=== PATIENT | female | born 1990 | race Caucasian/White ===

== ENCOUNTER 2017-04-06 18:24 | Inpatient (IN) | payer OTHER ==
[~2017-04-06] VITALS: Ht 154.9 cm; Wt 66.7 kg
[2017-04-06 18:36] VITALS: BP_SYST 143
[2017-04-06 19:39] LABS: BILIRUBIN,URINE NEGATIVE (NEGATIVE); BLOOD, URINE 1+ (NEGATIVE); CLARITY/URINE CLEAR (CLEAR); GLUCOSE,URINE NEGATIVE (NEGATIVE); KETONES,URINE NEGATIVE (NEGATIVE); LEUKOCYTE ESTERASE ,URINE 2+ (NEGATIVE); NITRITE, URINE NEGATIVE (NEGATIVE); PH,URINE 6.5 (5.0-8.0); PROTEIN URINE NEGATIVE (NEGATIVE); UROBILINOGEN,URINE 0.2 (0.2-1.0)
[2017-04-06 19:55] LABS: COLOR,URINE STRAW (YELLOW)
[2017-04-06 19:58] LABS: BACTERIA,URINE FEW /HPF (None Seen); WBC,URINE 20-50 /HPF (0-3)
[2017-04-06 19:59] LABS: MUCUS,URINE None Seen /LPF (None Seen)
[2017-04-06 20:00] LABS: BARBITURATE, URINE NEGATIVE (NEG <=200); METHAMPHETAMINES SCREEN,URINE NEGATIVE (NEG <=500); URINE AMPHETAMINE NEGATIVE (NEG <=500); URINE METHADONE NEGATIVE (NEG <=200)
[2017-04-06] MEDS ORDERED: KETOROLAC TROMETHAMINE 30 MG VIAL IVP ONE (20:00)
[2017-04-06] MEDS ORDERED: FOLIC ACID 1 MG, THIAMINE HCL 100 MG, MAGNESIUM SULFATE 1 GM, MVI 10 ML in NACL 0.9% 1,... IV ONE (20:00)
[2017-04-06] MEDS ORDERED: LORazepam 2 MG/ML VIAL (FOR ER USE) IVP ONE (20:00)
[2017-04-06 20:01] LABS: BENZODIAZEPINE, URINE POSITIVE (NEG <=150); CANNABINOID, URINE NEGATIVE (NEG <=50); COCAINE, URINE NEGATIVE (NEG <=150); OPIATE, URINE NEGATIVE (NEG <=100); PHENCYCLIDINE SCREEN,URINE NEGATIVE (NEG <=25); UR TRICYCLIC ANTIDEPRESSANTS NEGATIVE (NEG <=300); URINE OXYCODONE SCREEN NEGATIVE (NEG <=100); URINE PROPOXYPHENE SCREEN NEGATIVE (NEG <=300)
[2017-04-06] MEDS ORDERED: THIAMINE HCL 100 MG/ML VIAL ONE (20:27)
[2017-04-06] MEDS ORDERED: MVI 10 ML VIAL IV ONE (20:27)
[2017-04-06] MEDS ORDERED: FOLIC ACID 5 MG/ML VIAL IV ONE ×2 (20:27→21:45)
[2017-04-06] MEDS ORDERED: MAGNESIUM SULFATE 1 GM/2 ML VIAL ONE (20:27)
[2017-04-06 20:31] LABS: BASOPHILS % (AUTO) 0.6 % (0.0-2.0); EOSINOPHILS % (AUTO) 0.4 % (0.0-4.0); HEMATOCRIT 39.8 % (36-48); HEMOGLOBIN 13.8 g/dL (12.0-16.0); LYMPHOCYTES # (AUTO) 2.1 K/uL (1.0-5.5); LYMPHOCYTES % (AUTO) 25.8 % (20.5-51.5); MEAN CORPUSCULAR HEMOGLOBIN 32 pg (27-31); MEAN CORPUSCULAR HGB CONC 35 % (32-36); MEAN CORPUSCULAR VOLUME 92 fL (79.0-98.0); MONOCYTES # (AUTO) 0.6 K/uL (0.0-1.0); MONOCYTES % (AUTO) 6.9 % (1.7-9.3); NEUTROPHILS # (AUTO) 5.5 K/uL (1.8-7.7); NEUTROPHILS % (AUTO) 66.3 % (40.0-70.0); PLATELET COUNT (AUTO) 372 K/uL (130-430); RED BLOOD CELL COUNT(AUTO) 4.31 MIL/uL (4.2-6.2); WHITE BLOOD COUNT (AUTO) 8.2 K/uL (4.8-10.8)
[2017-04-06 20:40] LABS: ANION GAP 15 (5-15); CALCIUM 8.7 mg/dL (8.4-11.0); CHLORIDE 101 mmol/L (98-107); CREATININE 0.78 mg/dL (0.55-1.30); GLUCOSE 102 mg/dL (70-99); POTASSIUM 3.7 mmol/L (3.5-5.1); SODIUM SERUM 138 mmol/L (136-145); UREA NITROGEN, BLOOD 11 mg/dL (8-21)
[2017-04-06 20:43] LABS: GFR AFRICAN AMERICAN 117 mL/min (>90)
[2017-04-06 20:47] LABS: ALANINE AMINOTRANSFERASE 40 U/L (12-78); ALBUMIN 4.4 g/dL (3.4-4.8); ASPARTATE AMINOTRANSFERASE 86 U/L (10-37); TOTAL BILIRUBIN 0.4 mg/dL (0.0-1.0); TOTAL PROTEIN, SERUM 8.1 g/dL (6.4-8.3)
[2017-04-06 20:48] LABS: ACETAMINOPHEN < 1 ug/mL (1-30)
[2017-04-06 20:58] LABS: ALCOHOL, BLOOD 210 mg/dL (<10); SALICYLATE 1 mg/dL (3-30)
[2017-04-06] MEDS ORDERED: ACETAMINOPHEN 325 MG TABLET PO PRN (21:30)
[2017-04-06] MEDS ORDERED: LORazepam 2 MG/ML VIAL IM PRN (21:30)
[2017-04-06 22:22] VITALS: BP_SYST 131
[2017-04-06] MEDS: cefTRIAXone 1 GM in D5W 50 ML IV SCH (23:00)
[2017-04-06] MEDS ORDERED: cefTRIAXone 1 GM IVPB PREMIX 50 ML IV ONE (23:11)
[2017-04-06] MEDS: NACL 0.9% 1,000 ML IV SCH (23:14)
[2017-04-06 23:20] VITALS: BP_SYST 131
[2017-04-06 23:29] VITALS: BP_SYST 131
[2017-04-07 03:56] VITALS: BP_SYST 121
[2017-04-07 07:13] LABS: BASOPHILS % (AUTO) 0.5 % (0.0-2.0); EOSINOPHILS # (AUTO) 0.1 K/uL (0.0-0.4); EOSINOPHILS % (AUTO) 1.7 % (0.0-4.0); HEMATOCRIT 33.9 % (36-48); HEMOGLOBIN 11.8 g/dL (12.0-16.0); LYMPHOCYTES # (AUTO) 1.2 K/uL (1.0-5.5); LYMPHOCYTES % (AUTO) 19.9 % (20.5-51.5); MEAN CORPUSCULAR HEMOGLOBIN 33 pg (27-31); MEAN CORPUSCULAR HGB CONC 35 % (32-36); MEAN CORPUSCULAR VOLUME 93 fL (79.0-98.0); MONOCYTES # (AUTO) 0.4 K/uL (0.0-1.0); MONOCYTES % (AUTO) 6.7 % (1.7-9.3); NEUTROPHILS # (AUTO) 4.1 K/uL (1.8-7.7); NEUTROPHILS % (AUTO) 71.2 % (40.0-70.0); PLATELET COUNT (AUTO) 259 K/uL (130-430); RED BLOOD CELL COUNT(AUTO) 3.63 MIL/uL (4.2-6.2); RED CELL DISTRIBUTION WIDTH 12.1 % (9.0-15.0)
[2017-04-07 07:18] LABS: ALBUMIN 3.5 g/dL (3.4-4.8); CALCIUM 7.4 mg/dL (8.4-11.0); CREATININE 0.62 mg/dL (0.55-1.30); POTASSIUM 3.7 mmol/L (3.5-5.1); TOTAL BILIRUBIN 0.5 mg/dL (0.0-1.0); TOTAL PROTEIN, SERUM 6.8 g/dL (6.4-8.3)
[2017-04-07 07:25] LABS: WHITE BLOOD COUNT (AUTO) 5.9 K/uL (4.8-10.8)
[2017-04-07] MEDS: buPROPion HCL 75 MG TABLET PO SCH ×2 (08:07→20:49)
[2017-04-07] MEDS: METOPROLOL TARTRATE 25 MG TABLET PO SCH ×2 (08:08→20:50)
[2017-04-07] MEDS: NACL 0.9% 1,000 ML IV SCH ×2 (08:08→17:17)
[2017-04-07] MEDS: ENOXAPARIN SODIUM 40 MG/0.4 ML SYRINGE SUBCUT SCH (08:09)
[2017-04-07 08:15] VITALS: BP_SYST 135
[2017-04-07] MEDS: THIAMINE HCL 100 MG in NS 50 ML IV SCH (08:18)
[2017-04-07] MEDS ORDERED: ONDANSETRON HCL 4 MG/2 ML VIAL IVP PRN (09:45)
[2017-04-07 11:47] VITALS: BP_SYST 121
[2017-04-07] MEDS: ONDANSETRON HCL 4 MG/2 ML VIAL IVP PRN ×2 (15:06→20:57)
[2017-04-07 15:49] VITALS: BP_SYST 144
[2017-04-07 20:34] VITALS: BP_SYST 130
[2017-04-07] MEDS: cefTRIAXone 1 GM in D5W 50 ML IV SCH (20:48)
[2017-04-08] VITALS: BP_SYST 118
[2017-04-08] MEDS: NACL 0.9% 1,000 ML IV SCH (02:57)
[2017-04-08 04:00] VITALS: BP_SYST 131
[2017-04-08 07:04] LABS: BASOPHILS % (AUTO) 0.3 % (0.0-2.0); EOSINOPHILS # (AUTO) 0.1 K/uL (0.0-0.4); EOSINOPHILS % (AUTO) 2.7 % (0.0-4.0); HEMATOCRIT 35.3 % (36-48); HEMOGLOBIN 12.3 g/dL (12.0-16.0); LYMPHOCYTES % (AUTO) 21.9 % (20.5-51.5); MEAN CORPUSCULAR HEMOGLOBIN 33 pg (27-31); MEAN CORPUSCULAR HGB CONC 35 % (32-36); MEAN CORPUSCULAR VOLUME 93 fL (79.0-98.0); MONOCYTES # (AUTO) 0.4 K/uL (0.0-1.0); NEUTROPHILS % (AUTO) 67.1 % (40.0-70.0); PLATELET COUNT (AUTO) 237 K/uL (130-430); RED BLOOD CELL COUNT(AUTO) 3.78 MIL/uL (4.2-6.2); RED CELL DISTRIBUTION WIDTH 11.7 % (9.0-15.0); WHITE BLOOD COUNT (AUTO) 4.5 K/uL (4.8-10.8)
[2017-04-08 07:23] LABS: ALBUMIN 3.5 g/dL (3.4-4.8); CALCIUM 7.5 mg/dL (8.4-11.0); CREATININE 0.71 mg/dL (0.55-1.30); POTASSIUM 3.5 mmol/L (3.5-5.1); TOTAL BILIRUBIN 0.6 mg/dL (0.0-1.0); TOTAL PROTEIN, SERUM 7.1 g/dL (6.4-8.3)
[2017-04-08 08:00] VITALS: BP_SYST 133
[2017-04-08] MEDS: ONDANSETRON HCL 4 MG/2 ML VIAL IVP PRN ×2 (08:21→21:16)
[2017-04-08] MEDS: buPROPion HCL 75 MG TABLET PO SCH ×2 (08:21→20:57)
[2017-04-08] MEDS: METOPROLOL TARTRATE 25 MG TABLET PO SCH ×2 (08:22→20:57)
[2017-04-08] MEDS: ENOXAPARIN SODIUM 40 MG/0.4 ML SYRINGE SUBCUT SCH (08:23)
[2017-04-08] MEDS: THIAMINE HCL 100 MG in NS 50 ML IV SCH (09:47)
[2017-04-08 12:00] VITALS: BP_SYST 122
[2017-04-08 16:14] VITALS: BP_SYST 131
[2017-04-08 20:15] VITALS: BP_SYST 158
[2017-04-09] VITALS: BP_SYST 139
[2017-04-09 04:52] VITALS: BP_SYST 138
[2017-04-09 08:00] VITALS: BP_SYST 130
[2017-04-09] MEDS: ONDANSETRON HCL 4 MG/2 ML VIAL IVP PRN (08:28)
[2017-04-09] MEDS: buPROPion HCL 75 MG TABLET PO SCH (08:32)
[2017-04-09] MEDS: METOPROLOL TARTRATE 25 MG TABLET PO SCH (08:33)
[2017-04-09] MEDS: ENOXAPARIN SODIUM 40 MG/0.4 ML SYRINGE SUBCUT SCH (08:34)
[2017-04-09] MEDS: THIAMINE HCL 100 MG in NS 50 ML IV SCH (09:50)
[2017-04-09] MEDS ORDERED: BUPR75TA8 PO (10:32)
[2017-04-09] MEDS ORDERED: METO25TA6 PO (10:32)
[2017-04-09 12:05] VITALS: BP_SYST 132
[2017-04-09 13:30] VITALS: BP_SYST 132
== END 2017-04-09 14:15 | disposition home or self-care (01) | DRG 690 ==
LOC: SED 18:24 → STU 21:24 → SMU 04-08 14:17
PROVIDERS: ADMIT Internal Medicine; ATTEND Internal Medicine
DX: N39.0 Urinary tract infection, site not specified (principal); F10.239 Alcohol dependence with withdrawal, unspecified; I10 Essential (primary) hypertension; F32.9 Major depressive disorder, single episode, unspecified; F41.9 Anxiety disorder, unspecified; Z88.2 Allergy status to sulfonamides; Z81.4 Family history of other substance abuse and dependence; Z88.1 Allergy status to other antibiotic agents
CPT/HCPCS: 36415; 80053; 80307; 81000-TC; 83735-TC; 85025; 87086; 93005; 96365; 96366; 96375; 99285; G0480; G0481; G0482; J0696; J1650; J1885; J2060; J2405; J3411; J3475; J3490; J7030; J7060

== ENCOUNTER 2019-01-02 15:01 | Emergency (ER) | payer MEDICAID, OTHER ==
[~2019-01-02] VITALS: Ht 154.9 cm; Wt 62.6 kg
[~2019-01-02 15:01] MED LIST: BUPR75TA8 PO; METO25TA6 PO
[2019-01-02 15:07] VITALS: BP_SYST 122
--- NOTE | 2019-01-02 15:12 | NUR ---
Patient triaged and placed in waiting room. VSS and patient appears in no acute distress at this time. Accompanied by mother, awaiting available bed, and MD notified of need for MSE.
--- NOTE | 2019-01-02 16:18 | NUR ---
Patient to ER bed 05 to gown for evaluation. Side rails up. Pt present to ED c/o shakes, tremors, and back pain r/t alcohol withdrawal. Pt took 1/2 pint of vodka x 4 hours prior to bed placement. Skin pink dry and warm, breathing even and unlabored, speaking in full sentences. No other injuries/complaints per pt/noted. Will continue to monitor .
[2019-01-02] MEDS ORDERED: NACL 0.9% 1,000 ML IV ONE (16:37)
[2019-01-02 16:44] LABS: BILIRUBIN,URINE NEGATIVE (NEGATIVE); BLOOD, URINE 2+ (NEGATIVE); CLARITY/URINE CLEAR (CLEAR); COLOR,URINE YELLOW (YELLOW); GLUCOSE,URINE NEGATIVE (NEGATIVE); KETONES,URINE NEGATIVE (NEGATIVE); LEUKOCYTE ESTERASE ,URINE NEGATIVE (NEGATIVE); NITRITE, URINE NEGATIVE (NEGATIVE); PH,URINE 5.5 (5.0-8.0); PROTEIN URINE NEGATIVE (NEGATIVE); UROBILINOGEN,URINE 0.2 (0.2-1.0)
[2019-01-02] MEDS ORDERED: ONDANSETRON HCL 4 MG/2 ML VIAL IVP ONE ×3 (16:45→20:15)
[2019-01-02] MEDS ORDERED: LORazepam 2 MG/ML VIAL IVP ONE (16:45)
[2019-01-02 16:48] LABS: BASOPHILS # (AUTO) 0.1 K/uL (0.0-0.2); BASOPHILS % (AUTO) 1.1 % (0.0-2.0); EOSINOPHILS % (AUTO) 0.4 % (0.0-4.0); HEMATOCRIT 39.7 % (36-48); HEMOGLOBIN 13.5 g/dL (12.0-16.0); LYMPHOCYTES # (AUTO) 2.1 K/uL (1.0-5.5); MEAN CORPUSCULAR HEMOGLOBIN 31 pg (27-31); MEAN CORPUSCULAR HGB CONC 34 % (32-36); MEAN CORPUSCULAR VOLUME 92 fL (79.0-98.0); MONOCYTES # (AUTO) 0.3 K/uL (0.0-1.0); MONOCYTES % (AUTO) 6.1 % (1.7-9.3); NEUTROPHILS # (AUTO) 2.9 K/uL (1.8-7.7); NEUTROPHILS % (AUTO) 53.4 % (40.0-70.0); PLATELET COUNT (AUTO) 417 K/uL (130-430); RED BLOOD CELL COUNT(AUTO) 4.33 MIL/uL (4.2-6.2); RED CELL DISTRIBUTION WIDTH 13.9 % (9.0-15.0); WHITE BLOOD COUNT (AUTO) 5.3 K/uL (4.8-10.8)
[2019-01-02 16:52] LABS: BACTERIA,URINE FEW /HPF (None Seen)
[2019-01-02 16:55] LABS: PROTHROMBIN TIME 10.7 SECS (9.5-12.5)
[2019-01-02 16:55] LABS: BARBITURATE, URINE NEGATIVE (NEG <=200); METHAMPHETAMINES SCREEN,URINE NEGATIVE (NEG <=500); URINE AMPHETAMINE NEGATIVE (NEG <=500)
[2019-01-02 16:56] LABS: BENZODIAZEPINE, URINE POSITIVE (NEG <=150); CANNABINOID, URINE NEGATIVE (NEG <=50); COCAINE, URINE NEGATIVE (NEG <=150); OPIATE, URINE NEGATIVE (NEG <=100); PHENCYCLIDINE SCREEN,URINE NEGATIVE (NEG <=25); UR TRICYCLIC ANTIDEPRESSANTS NEGATIVE (NEG <=300); URINE METHADONE NEGATIVE (NEG <=200); URINE OXYCODONE SCREEN NEGATIVE (NEG <=100); URINE PROPOXYPHENE SCREEN NEGATIVE (NEG <=300)
[2019-01-02 16:58] LABS: ANION GAP 11 (5-15); CHLORIDE 103 mmol/L (98-107); CREATININE 0.69 mg/dL (0.55-1.30); GLUCOSE 89 mg/dL (70-99); POTASSIUM 3.6 mmol/L (3.5-5.1); SODIUM SERUM 139 mmol/L (136-145); UREA NITROGEN, BLOOD 10 mg/dL (8-21)
[2019-01-02 17:02] LABS: ALANINE AMINOTRANSFERASE 17 U/L (12-78); ALBUMIN 3.8 g/dL (3.4-4.8); AMYLASE 172 U/L (0-100); ASPARTATE AMINOTRANSFERASE 27 U/L (10-37); LIPASE 307 U/L (73-393); TOTAL BILIRUBIN 0.3 mg/dL (0.0-1.0)
[2019-01-02 17:03] LABS: ACETAMINOPHEN < 1 ug/mL (1-30); ALCOHOL, BLOOD 281 mg/dL (<10)
[2019-01-02 17:04] LABS: CALCIUM 8.3 mg/dL (8.4-11.0); GFR AFRICAN AMERICAN 132 mL/min (>90)
[2019-01-02] MEDS ORDERED: LORazepam 2 MG/ML VIAL (FOR ER USE) ONE (17:13)
[2019-01-02] MEDS ORDERED: FOLIC ACID 1 MG, THIAMINE HCL 100 MG, MAGNESIUM SULFATE 1 GM, MVI 10 ML in NACL 0.9% 1,... IV ONE (17:15)
[2019-01-02] MEDS ORDERED: MVI 10 ML VIAL IV ONE (17:19)
[2019-01-02] MEDS ORDERED: THIAMINE HCL 100 MG/ML VIAL ONE (17:19)
[2019-01-02] MEDS ORDERED: FOLIC ACID 5 MG/ML VIAL IV ONE (17:19)
[2019-01-02] MEDS ORDERED: MAGNESIUM SULFATE 1 GM/2 ML VIAL ONE (17:19)
[2019-01-02 17:27] LABS: CKMB RELATIVE INDEX 0.4 (0.0-2.9); CREATINE KINASE MB 0.8 ng/mL (0-3.6)
--- NOTE | 2019-01-02 17:27 | NUR ---
Medication administered. Pt tolerated well. No adverse reactions noted. Mother at bedside left for home and requests to be called with any change in pt condition. Pt informed that she is welcome to call her mother with her cell phone.
--- NOTE | 2019-01-02 18:19 | NUR ---
Pt reports nausea. MD Campos notified. Orders to be received
--- NOTE | 2019-01-02 18:52 | NUR ---
Pt ambulated to bathroom with steady gait
--- NOTE | 2019-01-02 19:42 | NUR ---
Zofran 4mg IVP administered. Pt tolerated well. No adverse reactions noted.
[2019-01-02 20:30] VITALS: BP_SYST 124
--- NOTE | 2019-01-02 20:30 | NUR ---
Patient given written and verbal discharge instructions and verbalizes understanding. ER MD discussed with patient the results and treatment provided. Patient in stable condition. ID arm band removed. IV catheter removed intact and dressing applied, no active bleeding. Rx of Ativan, Tylenol, Zofran given. Patient educated on pain management and to follow up with PMD. Pain Scale 0/10. Opportunity for questions provided and answered. Medication side effect fact sheet provided. Resources for Substance Abuse Treatment Facilities provided.
== END 2019-01-02 20:30 | disposition home or self-care (01) ==
LOC: SED 15:01
DX: F10.129 Alcohol abuse with intoxication, unspecified (principal); F19.10 Other psychoactive substance abuse, uncomplicated; F41.9 Anxiety disorder, unspecified; F32.9 Major depressive disorder, single episode, unspecified; R03.0 Elevated blood-pressure reading, without diagnosis of hypertension; Z88.1 Allergy status to other antibiotic agents; Z88.2 Allergy status to sulfonamides; Z79.899 Other long term (current) drug therapy
CPT/HCPCS: 36415; 71045; 80053; 80307; 81000; 82150; 82550; 82553; 83690; 84484; 85025; 85610; 85730; 96365; 96366; 96375; 96376; 99284; G0480; G0481; G0482; J2060; J2405; J3411; J3475; J3490; J7030

== ENCOUNTER 2019-09-23 11:14 | Emergency (ER) | payer MEDICAID ==
[~2019-09-23] VITALS: Ht 152.4 cm; Wt 63.5 kg
[2019-09-23 11:15] VITALS: BP_SYST 116
[2019-09-23] MEDS ORDERED: NACL 0.9% 1,000 ML IV ONE (12:03)
[2019-09-23] MEDS ORDERED: FOLIC ACID 1 MG, THIAMINE HCL 100 MG, MAGNESIUM SULFATE 1 GM, MVI 10 ML in NACL 0.9% 1,... IV ONE (12:15)
[2019-09-23] MEDS ORDERED: ONDANSETRON HCL 4 MG/2 ML VIAL IVP ONE ×2 (12:15→17:00)
[2019-09-23 12:55] LABS: BASOPHILS # (AUTO) 0.1 K/uL (0.0-0.2); BASOPHILS % (AUTO) 1.1 % (0.0-2.0); EOSINOPHILS % (AUTO) 0.3 % (0.0-4.0); HEMOGLOBIN 14.6 g/dL (12.0-16.0); LYMPHOCYTES # (AUTO) 2.4 K/uL (1.0-5.5); LYMPHOCYTES % (AUTO) 27.8 % (20.5-51.5); MEAN CORPUSCULAR HEMOGLOBIN 31 pg (27-31); MEAN CORPUSCULAR HGB CONC 35 % (32-36); MEAN CORPUSCULAR VOLUME 90 fL (79.0-98.0); MONOCYTES # (AUTO) 0.2 K/uL (0.0-1.0); MONOCYTES % (AUTO) 2.2 % (1.7-9.3); NEUTROPHILS # (AUTO) 5.9 K/uL (1.8-7.7); NEUTROPHILS % (AUTO) 68.6 % (40.0-70.0); PLATELET COUNT (AUTO) 594 K/uL (130-430); RED BLOOD CELL COUNT(AUTO) 4.67 MIL/uL (4.2-6.2); RED CELL DISTRIBUTION WIDTH 13.8 % (9.0-15.0); WHITE BLOOD COUNT (AUTO) 8.5 K/uL (4.8-10.8)
[2019-09-23 13:16] LABS: ANION GAP 11 (5-15); CHLORIDE 102 mmol/L (98-107); CREATININE 0.95 mg/dL (0.55-1.30); GLUCOSE 96 mg/dL (70-99); POTASSIUM 3.7 mmol/L (3.5-5.1); PROTHROMBIN TIME 10.3 SECS (9.5-12.5); SODIUM SERUM 140 mmol/L (136-145); UREA NITROGEN, BLOOD 12 mg/dL (8-21)
[2019-09-23 13:17] LABS: GFR AFRICAN AMERICAN 91 mL/min (>90)
[2019-09-23 13:27] LABS: ALANINE AMINOTRANSFERASE 39 U/L (12-78); AMYLASE 66 U/L (0-100); ASPARTATE AMINOTRANSFERASE 33 U/L (10-37); TOTAL BILIRUBIN 0.3 mg/dL (0.0-1.0)
[2019-09-23 13:28] LABS: ACETAMINOPHEN < 1 ug/mL (1-30); ALCOHOL, BLOOD 342 mg/dL (<10); LIPASE 123 U/L (73-393)
[2019-09-23] MEDS ORDERED: ONDANSETRON HCL 4 MG/2 ML VIAL ONE ×2 (14:26→17:03)
[2019-09-23] MEDS ORDERED: THIAMINE HCL 100 MG, MAGNESIUM SULFATE 1 GM in NS 100 ML IV ONE (14:30)
[2019-09-23] MEDS ORDERED: FOLIC ACID 1 MG, MVI 10 ML in NACL 0.9% 1,000 ML IV ONE (14:30)
[2019-09-23 18:21] VITALS: BP_SYST 115
== END 2019-09-23 18:19 | disposition home or self-care (01) ==
LOC: SED 11:14
DX: F10.229 Alcohol dependence with intoxication, unspecified (principal); I10 Essential (primary) hypertension; F32.9 Major depressive disorder, single episode, unspecified; F41.9 Anxiety disorder, unspecified; F14.90 Cocaine use, unspecified, uncomplicated; Y90.8 Blood alcohol level of 240 mg/100 ml or more; Z88.2 Allergy status to sulfonamides; Z88.1 Allergy status to other antibiotic agents
CPT/HCPCS: 36415; 71045; 80053; 82150; 83605; 83690; 84484; 85025; 85610; 85730; 87040; 96365; 96366; 96368; 96375; 96376; 99284; G0480; G0481; G0482; J2405; J3411; J3475; J3490; J7030